=== PATIENT | female | born 1985 | race Caucasian/White ===

== ENCOUNTER 2020-06-21 15:38 | Emergency (ER) | payer OTHER ==
[~2020-06-21] VITALS: Ht 157.5 cm; Wt 72.6 kg
[~2020-06-21 15:38] MED LIST: FLAGYL500 MG; NORCO 5-325 TA1 EAC1 PO; TRI-SPRINTEC1 EACH
[2020-06-21 16:51] VITALS: BP 141/70
== END 2020-06-21 16:52 | disposition home or self-care (01) ==
LOC: M.ERS 15:38
DX: J02.9 Acute pharyngitis, unspecified (principal); M79.10 Myalgia, unspecified site; Z20.828 Contact with and (suspected) exposure to other viral communicable diseases